=== PATIENT | male | born 1985 | race Caucasian/White ===

== ENCOUNTER 2017-07-23 21:08 | Emergency (ER) | payer BC, OTHER ==
[2017-07-23 21:13] VITALS: BP 140/93
--- NOTE | 2017-07-23 21:52 | EDM.PDOC ---
ED HPI GENERAL MEDICAL PROBLEM - General Chief Complaint: Upper Extremity Injury/Pain Stated Complaint: L)shoulder pain Time Seen by Provider: 07/23/17 21:28 Source of Information: Reports: Patient History Limitations: Reports: No Limitations - History of Present Illness INITIAL COMMENTS - FREE TEXT/NARRATIVE: Patient presents to ER with complaints of left shoulder pain. Was lifting boxes when felt a pull in his left shoulder. Thought it was just a small strain but when attempted to lift again, had the same sharp pain in his shoulder. Now notes he has pain with rotation of his shoulder. Feels a sharp pain deep in the shoulder. No other concern Onset: Today, Sudden Duration: Minutes: Location: Reports: Upper Extremity, Left Quality: Reports: Sharp Severity: Moderate Improves with: Reports: Rest Worsens with: Reports: Movement Context: Reports: Lifting Left Shoulder Pain Score (Numeric/FACES): 5 - Related Data Allergies Allergy/AdvReac Type Severity Reaction Status Date / Time No Known Allergies Allergy Verified 07/23/17 21:13 Home Meds: Home Meds DULoxetine [Cymbalta] 60 mg PO DAILY 02/25/16 [History] predniSONE 50 mg PO DAILY 07/23/17 [History] Past Medical History Psychiatric History: Reports: Depression - Past Surgical History GI Surgical History: Reports: Appendectomy Musculoskeletal Surgical History: Reports: Other (See Below) Other Musculoskeletal Surgeries/Procedures:: bilat ankle Social & Family History - Family History Family Medical History: Noncontributory - Tobacco Use Smoking Status *Q: Never Smoker - Caffeine Use Caffeine Use: Reports: None - Alcohol Use Days Per Week of Alcohol Use: 1 Number of Drinks Per Day: 5 Total Drinks Per Week: 5 - Recreational Drug Use Recreational Drug Use: No - Sexual History Sexual History: Reports: Sexually Active - Living Situation & Occupation Living situation: Reports: , with Family Occupation: Employed Review of Systems - Review of Systems Review Of Systems: See Below Musculoskeletal: Reports: Arm Pain, Joint Pain, Muscle Pain. Denies: Joint Swelling Skin: Reports: No Symptoms Neurological: Reports: No Symptoms ED EXAM, GENERAL - Physical Exam Exam: See Below Exam Limited By: No Limitations General Appearance: Alert, WD/WN, No Apparent Distress Extremities: Normal Inspection, Other (Patient is tender to the deltoid tendon; pain with abduction and external and internal rotation. Strength 4+. No obvious deformity noted. ) Psychiatric: Normal Affect, Normal Mood Skin Exam: Warm, Dry Course - Vital Signs Last Recorded V/S: Last Vital Signs Temp 97.1 F 07/23/17 21:09 Pulse 98 07/23/17 21:09 Resp 20 07/23/17 21:09 BP 140/93 H 07/23/17 21:09 Pulse Ox 98 07/23/17 21:09 - Orders/Labs/Meds Orders: Active Orders 24 hr Category Date Time Status Shoulder Comp Lt [CR] Stat Exams 07/23/17 21:25 Taken Meds: Medications Discontinued Medications Generic Name Dose Route Start Last Admin Trade Name Santa PRN Reason Stop Dose Admin Ketorolac Tromethamine 60 mg 07/23/17 21:47 Toradol IM 07/23/17 21:48 ONETIME ONE - Re-Assessments/Exams Free Text/Narrative Re-Assessment/Exam: 07/23/17 21:45 Xrays reviewed. No obvious deformity Departure - Departure Time of Disposition: 21:50 Disposition: Home, Self-Care 01 Condition: Good Clinical Impression: Sprain of shoulder - Discharge Information Referrals: Christianne Hurley PA-C [Primary Care Provider] - Forms: ED Department Discharge Additional Instructions: 1. Rest 2. Ice to shoulder 3. Meloxicam 15 mg daily 4. Limit lifting more than 20# for next week 5. May need to consider physical therapy if symptoms persist. 6. Follow up in one week for recheck - My Orders Last 24 Hours: My Active Orders 07/23/17 21:25 Shoulder Comp Lt [CR] Stat - Assessment/Plan Last 24 Hours: My Active Orders 07/23/17 21:25 Shoulder Comp Lt [CR] Stat
[2017-07-23] MEDS: Ketorolac 60 MG/2 ML SDV IM ONE (21:54)
== END 2017-07-23 21:59 | disposition home or self-care (01) ==
LOC: CC.ED 21:08
DX: S43.402A Unspecified sprain of left shoulder joint, initial encounter (principal); F32.9 Major depressive disorder, single episode, unspecified; X50.9XXA Other and unspecified overexertion or strenuous movements or postures, initial encounter; Z79.899 Other long term (current) drug therapy
CPT/HCPCS: 73030-LT; 96372; 99283; J1885

== ENCOUNTER 2018-03-06 01:15 | Emergency (ER) | payer OTHER, BC ==
[2018-03-06] MEDS ORDERED: Acetaminophen/HYDROcodone 325-5 MG Tab PO ONE (01:16)
[2018-03-06 01:34] VITALS: BP 121/66
[2018-03-06] MEDS ORDERED: Lidocaine 1% 20 ML MDV INJECT ONE (01:46)
--- NOTE | 2018-03-06 01:57 | EDM.PDOC ---
ED HPI GENERAL MEDICAL PROBLEM - General Chief Complaint: Upper Extremity Injury/Pain Stated Complaint: FINGER INJURY Time Seen by Provider: 03/06/18 01:35 Source of Information: Reports: Patient History Limitations: Reports: No Limitations - History of Present Illness INITIAL COMMENTS - FREE TEXT/NARRATIVE: Was working at the [employer] and got little finger pinched between pipes and has a laceration on the pad of the fifth finger. Minimal amount of bleeding noted. blood noted under finger nail. No other injury noted. Onset: Sudden Location: Reports: Upper Extremity, Right Right 5-Little finger Pain Score (Numeric/FACES): 6 - Related Data Allergies Allergy/AdvReac Type Severity Reaction Status Date / Time No Known Allergies Allergy Verified 03/06/18 01:34 Home Meds: Home Meds DULoxetine [Cymbalta] 60 mg PO DAILY 02/25/16 [History] LORazepam [Ativan] 0.5 mg PO ASDIRECTED 03/06/18 [History] traZODone HCl [Trazodone HCl] 50 mg PO DAILY 03/06/18 [History] Past Medical History Psychiatric History: Reports: Depression - Past Surgical History GI Surgical History: Reports: Appendectomy Musculoskeletal Surgical History: Reports: Other (See Below) Other Musculoskeletal Surgeries/Procedures:: bilat ankle Social & Family History - Family History Family Medical History: Noncontributory - Tobacco Use Smoking Status *Q: Never Smoker - Caffeine Use Caffeine Use: Reports: Energy Drinks - Recreational Drug Use Recreational Drug Use: No - Sexual History Sexual History: Reports: Sexually Active - Living Situation & Occupation Living situation: Reports: , with Family Occupation: Employed Review of Systems - Review of Systems Review Of Systems: See Below Constitutional: Reports: No Symptoms Musculoskeletal: Reports: Hand Pain Skin: Reports: Wound (rght fifth finger) ED EXAM, GENERAL - Physical Exam Exam: See Below Exam Limited By: No Limitations General Appearance: Alert, WD/WN, Mild Distress Extremities: Normal Capillary Refill Neurological: Alert, Oriented Skin Exam: Warm, Dry, Normal Color, Wound/Incision (distal tip of the right fifth finger has laceration noted. Minimal amount of bleeding noted.) ED TRAUMA EXTREMITY PROCEDURES - Laceration/Wound Repair Right Distal Digit - 5th (Baby) Lac/Wound Length In cm: 3 Appearance: Irregular, Clean, Other (3 cm semicircular laceration that extends from the side of the finger to under fingernail tip.) Distal NVT: Neuro & Vascular Intact Anesthetic Type: Local Local Anesthesia - Lidocaine (Xylocaine): 1% Plain Local Anesthetic Volume: 3cc Skin Prep: Saline Exploration/Debridement/Repair: In a Bloodless Field, No Foreign Material Found Closed With: Sutures Suture Size: 4-0 # of Sutures: 5 Suture Type: Nylon, Interrupted Course - Vital Signs Last Recorded V/S: Last Vital Signs Temp 96.1 F 03/06/18 01:32 Pulse 69 03/06/18 01:32 Resp 20 03/06/18 01:32 BP 121/66 03/06/18 01:32 Pulse Ox 98 03/06/18 01:32 - Orders/Labs/Meds Orders: Active Orders 24 hr Category Date Time Status Fingers Fifth Digit Rt F9 [CR] Stat Exams 03/06/18 01:27 Ordered Lidocaine 1% [Xylocaine 1%] Med 03/06/18 01:46 Once 20 ml INJECT ONETIME ONE - Re-Assessments/Exams Free Text/Narrative Re-Assessment/Exam: 03/06/18 02:24 5 interrupted sutures inserted including one through the fingernail distally. discussed fracture of distal tip of the fifth finger Departure - Departure Time of Disposition: 02:26 Disposition: Home, Self-Care 01 Condition: Good Clinical Impression: Open fracture of tuft of distal phalanx of finger Laceration of finger Qualifiers: Encounter type: initial encounter Finger: little finger Damage to nail status: without damage Foreign body presence: without foreign body Laterality: right Qualified Code(s): S61.216A - Laceration without foreign body of right little finger without damage to nail, initial encounter - Discharge Information *PRESCRIPTION DRUG MONITORING PROGRAM REVIEWED*: No *COPY OF PRESCRIPTION DRUG MONITORING REPORT IN PATIENT HERMINIA: No Instructions: Finger Fracture, [id number], Sutured Wound Care Additional Instructions: Keep finger clean and dry. May shower and then redress finger cover with antibiotic ointment and dry dressing wear splint to the end of finger to protect for next 5-6 weeks. sutures out in about 10 days. You will need to make clinic appt to do this - Problem List & Annotations (1) Laceration of finger SNOMED Code(s): 631721843 Code(s): S61.219A - LACERATION W/O FB OF UNSP FINGER W/O DAMAGE TO NAIL, INIT Status: Acute Priority: High Qualifiers: Encounter type: initial encounter Finger: little finger Damage to nail status: without damage Foreign body presence: without foreign body Laterality: right Qualified Code(s): S61.216A - Laceration without foreign body of right little finger without damage to nail, initial encounter (2) Open fracture of tuft of distal phalanx of finger SNOMED Code(s): 708653270 Code(s): S62.639B - DISP FX OF DISTAL PHALANX OF UNSP FINGER, INIT FOR OPN FX Status: Acute Priority: High - Problem List Review Problem List Initiated/Reviewed/Updated: Yes - My Orders Last 24 Hours: My Active Orders 03/06/18 01:27 Fingers Fifth Digit Rt F9 [CR] Stat 03/06/18 01:46 Lidocaine 1% [Xylocaine 1%] 20 ml INJECT ONETIME ONE - Assessment/Plan Last 24 Hours: My Active Orders 03/06/18 01:27 Fingers Fifth Digit Rt F9 [CR] Stat 03/06/18 01:46 Lidocaine 1% [Xylocaine 1%] 20 ml INJECT ONETIME ONE
[2018-03-06] MEDS ORDERED: Bacitracin/Neomycin/Polymyxin B Oint 0.9 GM U/D Packet TOP ONE (02:22)
[2018-03-06] MEDS ORDERED: Take Home: Acetaminophen/HYDROcodone 325-5 MG, 2 Tab Pack PO ONE (02:31)
== END 2018-03-06 02:50 | disposition home or self-care (01) ==
LOC: CC.ED 01:15
DX: S62.636B Displaced fracture of distal phalanx of right little finger, initial encounter for open fracture (principal); W23.0XXA Caught, crushed, jammed, or pinched between moving objects, initial encounter
CPT/HCPCS: 12002; 73140; 99283; A9270